=== PATIENT | female | born 1965 | race Asian ===

== ENCOUNTER 2021-10-09 12:13 | Emergency (ER) | payer OTHER ==
[~2021-10-09] VITALS: Ht 152.4 cm; Wt 54.5 kg
[2021-10-09 12:22] VITALS: BP 142/90
[2021-10-09] MEDS ORDERED: HYDR25TA2 PO (12:28)
[2021-10-09] MEDS ORDERED: LOSA-382 PO (12:28)
== END 2021-10-09 12:42 | disposition home or self-care (01) ==
LOC: EMS 12:13
DX: U07.1 COVID-19 (principal); Z79.899 Other long term (current) drug therapy
CPT/HCPCS: 99283; U0003; C9803